=== PATIENT | female | born 1985 | race American Indian/Alaskan Native ===

== ENCOUNTER 2016-10-28 09:08 | Emergency (ER) | payer BC ==
[2016-10-28 09:08] VITALS: BMI 36.0
[2016-10-28 09:17] VITALS: BP 124/86; PULSE 90; RESP 18; TEMP 97.8; O2SAT 98
[2016-10-28] MEDS ORDERED: Naproxen 550 mg Tab PO STA (09:21)
--- NOTE | 2016-10-28 09:22 | C.PDOC ---
History Of Present Illness Wil son, presents with left knee pain, after she tripped on stairs, and knee went into stair. injury occured last night. no other injury or complaint Time Seen by Provider: 10/28/16 09:18 Chief Complaint (Nursing): Lower Extremity Problem/Injury Past Medical History Reviewed: Historical Data, Nursing Documentation, Vital Signs Vital Signs: Last Vital Signs Temp 97.8 F 10/28/16 09:14 Pulse 90 10/28/16 09:14 Resp 18 10/28/16 09:14 BP 124/86 10/28/16 09:14 Pulse Ox 98 10/28/16 09:32 - Medical History PMH: Asthma Family History: States: Unknown Family Hx - Social History Hx Alcohol Use: Yes Hx Substance Use: No - Immunization History Hx Tetanus Toxoid Vaccination: No Hx Influenza Vaccination: No Hx Pneumococcal Vaccination: No Review Of Systems Musculoskeletal: Positive for: Other ((+)left knee pain) Physical Exam - Physical Exam Appears: Well, No Acute Distress Skin: Normal Color, Warm, Dry Eye(s): bilateral: Normal Inspection, PERRL, EOMI Nose: Normal Throat: Normal Neck: Normal Cardiovascular: Rhythm Regular Respiratory: Normal Breath Sounds Gastrointestinal/Abdominal: Normal Exam Back: Normal Inspection Extremity: Normal ROM, Tenderness ((+)mild ttp left knee), No Deformity, Swelling ((+)mild left sided) ED Course And Treatment O2 Sat by Pulse Oximetry: 98 Medical Decision Making Medical Decision Making: xr neg as read by me. given immobilizer. advise outpt f/u pt declines crutches Disposition - Disposition Referrals: [facility] [Outside] [facility] [Outside] [facility] [Outside] Colin Greene MD [Staff Provider] - Disposition: HOME/ ROUTINE Disposition Time: 09:31 Condition: STABLE Additional Instructions: follow up with your doctor/clinic and specialist. return to er with worsening symptoms or concerns. Prescriptions: Naproxen 500 mg PO BID PRN #14 tab PRN Reason: Pain, Mild (1-3) Instructions: Knee Sprain (ED) Forms: Work Excuse - Clinical Impression Clinical Impression: Knee injury
[2016-10-28] MEDS ORDERED: Naproxen 550 mg Tab PO ONE (09:23)
--- NOTE | 2016-10-28 12:19 | RAD ---
PROCEDURE: Left Knee Radiographs. HISTORY: Posttraumatic pain. COMPARISON: None. FINDINGS: BONES: Normal. No fracture. JOINTS: Normal. No osteoarthritis. JOINT EFFUSION: None. OTHER FINDINGS: None. IMPRESSION: No acute findings related to/accounting for the clinical presentation.
== END 2016-10-28 09:59 | disposition home or self-care (01) ==
LOC: C.ER 09:08
DX: S89.92XA Unspecified injury of left lower leg, initial encounter (principal); W01.198A Fall on same level from slipping, tripping and stumbling with subsequent striking against other object, initial encounter

== ENCOUNTER 2017-01-12 11:45 | Emergency (ER) | payer BC ==
[2017-01-12 11:46] VITALS: BMI 36.0
[2017-01-12 12:04] VITALS: RESP 16; TEMP 98.4; O2SAT 98
--- NOTE | 2017-01-12 12:39 | CT ---
PROCEDURE: CT HEAD WITHOUT CONTRAST. HISTORY: pain COMPARISON: None available. TECHNIQUE: Axial computed tomography images were obtained through the head/brain without intravenous contrast. Radiation dose: Total exam DLP = 911.76 mGy-cm. This CT exam was performed using one or more of the following dose reduction techniques: Automated exposure control, adjustment of the mA and/or kV according to patient size, and/or use of iterative reconstruction technique. FINDINGS: HEMORRHAGE: No intracranial hemorrhage. BRAIN: No mass effect or edema. No atrophy or chronic microvascular ischemic changes. VENTRICLES: Unremarkable. No hydrocephalus. CALVARIUM: Unremarkable. PARANASAL SINUSES: Unremarkable as visualized. No significant inflammatory changes. MASTOID AIR CELLS: Unremarkable as visualized. No inflammatory changes. OTHER FINDINGS: None. IMPRESSION: Normal CT of the Head. No intracranial mass, hemorrhage or evidence of acute infarct.
--- NOTE | 2017-01-12 13:04 | C.PDOC ---
History Of Present Illness 31 yo female c/o headache for three days. Pt notes its constant, usually relieved by Tylenol and returns. Located on the right forehead area. No n/v. No change in sensation. Pt notes she has had the same headaches for years. No h/o imaging or neuro evaluation. She was seen by her PMD, Dr Alcazar , who instructed her to follow up with neurology but she has not gotten a chance to do that. (-) photophobia. Took Tylenol without relief this morning. Time Seen by Provider: 01/12/17 11:57 Chief Complaint (Nursing): Headache History Per: Patient History/Exam Limitations: no limitations Onset/Duration Of Symptoms: Days (3) Associated Symptoms: denies: Photophobia, Blurred Vision, Nausea, Vomiting, Extremity Weakness Past Medical History Vital Signs: Last Vital Signs Temp 98.4 F 01/12/17 11:56 Pulse 72 01/12/17 11:56 Resp 16 01/12/17 11:56 BP 150/91 H 01/12/17 11:56 Pulse Ox 98 01/12/17 11:56 - Medical History PMH: Asthma Family History: States: Unknown Family Hx - Social History Hx Alcohol Use: Yes Hx Substance Use: No - Immunization History Hx Tetanus Toxoid Vaccination: No Hx Influenza Vaccination: No Hx Pneumococcal Vaccination: No Review Of Systems Except As Marked, All Systems Reviewed And Found Negative. Neurological: Positive for: Headache. Negative for: Weakness, Numbness, Incoordination, Change in Speech Physical Exam - Physical Exam Appears: Well, Non-toxic, No Acute Distress, Other (Pt is playing on her phone, no active distress) Skin: Normal Color, Warm, Dry Head: Atraumatic, Normacephalic, Tenderness ((+) right forehead) Eye(s): bilateral: Normal Inspection, PERRL, EOMI Ear(s): Bilateral: Normal Nose: Normal Oral Mucosa: Moist Neck: Normal, Normal ROM, Supple ((-) menigismus) Chest: Symmetrical Cardiovascular: Rhythm Regular Respiratory: Normal Breath Sounds Back: Normal Inspection Extremity: Normal ROM Neurological/Psych: Oriented x3, Normal Speech, Normal Cognition, Normal Cranial Nerves (2-12 grossly intact, no focal deficits), Normal Motor, Normal Sensation ED Course And Treatment O2 Sat by Pulse Oximetry: 98 - CT Scan/US Head CT Other Rad Studies (CT/US): Read By Radiologist, Radiology Report Reviewed CT/US Interpretation: Accession No. : [id number]. Patient Name / ID : SHAI ROSARIO / [id number]. Exam Date : 01/12/2017 12:24:37 ( Approved ). Study Comment : Sex / Age : F / 31Y. Creator : Jw Martinez MD. Dictator : Jw Martinez MD. Senior Data Architect : Soccer Coach : Jw Martinez MD. Approver2 : Report Date : 01/12/2017 12:37:18. My Comment : . PROCEDURE : CT HEAD WITHOUT CONTRAST. HISTORY: pain. COMPARISON: None available. TECHNIQUE: Axial computed tomography images were obtained through the head/ brain without intravenous contrast. Radiation dose: Total exam DLP = 911.76 mGy-cm. This CT exam was performed using one or more of the following dose reduction techniques: Automated exposure control, adjustment of the mA and/or kV according to patient size, and/or use of iterative reconstruction technique. FINDINGS: HEMORRHAGE: No intracranial hemorrhage. BRAIN: No mass effect or edema. No atrophy or chronic microvascular ischemic changes. VENTRICLES: Unremarkable. No hydrocephalus. CALVARIUM: Unremarkable. PARANASAL SINUSES: Unremarkable as visualized. No significant inflammatory changes. MASTOID AIR CELLS: Unremarkable as visualized. No inflammatory changes. OTHER FINDINGS: None. IMPRESSION: Normal CT of the Head. No intracranial mass, hemorrhage or evidence of acute infarct. Progress Note: Toradol and Reglan given. On reassessment, patient is resting comfortably, is tolerating PO, and pain has improved. Patient has no neurologic deficit, photophobia, rash, fever, or nuchal rigidity. Patient was instructed to follow up with physician/clinic in 1-2 days. Disposition - Disposition Referrals: Dimitri Mock MD [Staff Provider] - Disposition: HOME/ ROUTINE Disposition Time: 13:10 Condition: STABLE Additional Instructions: Follow up with primary medical doctor in 1-3 days without fail for further evaluation. Take medications as prescribed. Return to the emergency department at any time if symptoms persist or worsen. Prescriptions: Naproxen [Naprosyn] 1 tab PO BID PRN #20 tab PRN Reason: Pain Instructions: Acute Headache (ED) Forms: [employer] (Swazi) - Clinical Impression Clinical Impression: Headache
[2017-01-12 13:15] VITALS: BP 146/85; PULSE 70
== END 2017-01-12 13:15 | disposition home or self-care (01) ==
LOC: C.ER 11:45
DX: R51 Headache (principal)
CPT/HCPCS: 70450; 96372; 99284; J1885